=== PATIENT | male | born 1995 | race Two or more races ===

== ENCOUNTER 2024-11-20 23:57 | Inpatient (IN) | payer OTHER ==
[~2024-11-20] VITALS: Ht 177.8 cm; Wt 117.9 kg
[2024-11-21] MEDS ORDERED: LEVOTHYROXINE13 MCG PO (00:04)
--- NOTE | 2024-11-21 00:04 | NUR ---
PTE ALERTA Y ORIENTADO X3 EN AMBULANCIA REFIERE VENIR DE TRANSFER DEL [facility]. ANDRAE REFIERE VENIR POR DOLOR ABDOMINAL. DRA ALVAREZ ACEPTO ANDREA DE PTE
[2024-11-21] MEDS ORDERED: 0.9 % SODIUM CHLORIDE 1,000 ML IV STA (00:47)
[2024-11-21] MEDS ORDERED: HYOSCYAMINE SULFATE 0.125 MG TAB.SUBL SL STA (00:48)
[2024-11-21] MEDS ORDERED: HYOSCYAMINE SULFATE 0.125 MG TAB.SUBL ONE (00:56)
--- NOTE | 2024-11-21 04:25 | NUR ---
SE RONEN MUESTRAS DE LAB
[2024-11-21 04:39] LABS: BASO % 0.5 % (0.1-1.2); EOS # 0.08 (0.04-0.54); EOS % 0.8 % (0.7-7.0); LYMPH # 2.03 (1.18-3.74); LYMPH % 20.2 % (19.3-53.1); MEAN PLATELET VOLUME 10.90 fl (9.4-12.4); MONO # 0.59 (0.24-0.82); MONO % 5.9 % (4.7-12.5); NEUT # 7.27 (1.56-6.13); NEUT % 72.4 % (34.0-71.1); RED CELL DISTRIBUTION WIDTH 12.1 % (11.6-14.4)
[2024-11-21 04:49] LABS: INR 1.04
[2024-11-21 05:26] LABS: ALT/SGPT 275.0 U/L (12-78); AST/SGOT 212.0 U/L (15-37); BILIRUBIN TOTAL 5.93 mg/dL (0.3-1.2); BILIRUBIN,CONJUGATED 3.48 mg/dL (0.0-0.2); BUN CREA RATIO 13.0 (7.0-25.0); CREATININE SERUM 0.89 mg/dL (0.70-1.30); GFR 101.06; GLOBULINA 3.9 G/DL (2.4-3.5); GLUCOSE FASTING 101.0 mg/dL (65-100); OSMOLALITY SERUM 283.0 MOSM/KG (275-295)
[2024-11-21] MEDS ORDERED: PIPERACILLIN/TAZOBACTAM SODIUM 3.375 GM VIAL IV STA (06:11)
[2024-11-21] MEDS ORDERED: PIPERACILLIN/TAZOBACTAM SODIUM 3.375 GM VIAL IV ONE (06:22)
[2024-11-21] MEDS ORDERED: 0.9 % SODIUM CHLORIDE 1,000 ML IV SCH (10:30)
[2024-11-21] MEDS ORDERED: FAMOtidine 10 MG/ML (4ML VIAL) IV SCH (10:31)
[2024-11-21] MEDS ORDERED: MORPHINE SULFATE 4 MG/ML VIAL IV PRN (10:45)
[2024-11-21] MEDS ORDERED: ONDANSETRON HCL 4 MG in 0.9 % SODIUM CHLORIDE 50 ML IV PRN (10:45)
[2024-11-21] MEDS ORDERED: GLUCAGON 1 MG VIAL ONE (12:59)
[2024-11-21] MEDS ORDERED: IOVERSOL 320 MG/ML - 50 ML VIAL IV ONE (12:59)
[2024-11-21] MEDS ORDERED: MORPHINE SULFATE 4 MG/ML CARTRIDGE IV PRN (14:15)
[2024-11-21] MEDS ORDERED: DICLOFENAC SODIUM 100 MG SUPP.RECT RECTAL NR (14:30)
[2024-11-21] MEDS ORDERED: PIPERACILLIN/TAZOBACTAM SODIUM 3.375 GM in 0.9 % SODIUM CHLORIDE 100 ML IV SCH (18:00)
[2024-11-21 23:01] VITALS: BP 113/69; O2SAT 97
[2024-11-22 07:30] VITALS: BP 108/69; O2SAT 96
[2024-11-22 08:00] LABS: ALT/SGPT 266.0 U/L (12-78); AST/SGOT 156.0 U/L (15-37); BASO % 0.5 % (0.1-1.2); BILIRUBIN TOTAL 4.56 mg/dL (0.3-1.2); BUN CREA RATIO 15.0 (7.0-25.0); CREATININE SERUM 0.93 mg/dL (0.70-1.30); EOS # 0.11 (0.04-0.54); EOS % 1.1 % (0.7-7.0); GFR 96.06; GLOBULINA 3.3 G/DL (2.4-3.5); GLUCOSE FASTING 76.0 mg/dL (65-100); LYMPH # 1.47 (1.18-3.74); LYMPH % 15.3 % (19.3-53.1); MEAN PLATELET VOLUME 11.10 fl (9.4-12.4); MONO # 0.58 (0.24-0.82); MONO % 6.0 % (4.7-12.5); NEUT # 7.38 (1.56-6.13); NEUT % 76.8 % (34.0-71.1); OSMOLALITY SERUM 284.0 MOSM/KG (275-295); RED CELL DISTRIBUTION WIDTH 12.3 % (11.6-14.4)
[2024-11-22] MEDS ORDERED: FAMOTIDINE/PF 20 MG/2 ML VIAL IV SCH (09:00)
[2024-11-22 16:00] VITALS: BP 150/90; O2SAT 95
[2024-11-23] VITALS: BP 116/67; O2SAT 97
[2024-11-23 08:00] VITALS: BP 101/68; O2SAT 96
[2024-11-23 08:07] LABS: BASO % 0.4 % (0.1-1.2); EOS # 0.18 (0.04-0.54); EOS % 2.2 % (0.7-7.0); LYMPH # 1.75 (1.18-3.74); LYMPH % 21.5 % (19.3-53.1); MEAN PLATELET VOLUME 11.00 fl (9.4-12.4); MONO # 0.54 (0.24-0.82); MONO % 6.6 % (4.7-12.5); NEUT # 5.63 (1.56-6.13); NEUT % 69.2 % (34.0-71.1); RED CELL DISTRIBUTION WIDTH 12.0 % (11.6-14.4)
[2024-11-23 08:40] LABS: BUN CREA RATIO 11.0 (7.0-25.0); CREATININE SERUM 0.87 mg/dL (0.70-1.30); GFR 103.74; GLUCOSE FASTING 64.0 mg/dL (65-100); OSMOLALITY SERUM 284.0 MOSM/KG (275-295)
[2024-11-23 12:38] LABS: GLUCOSE FASTING 108.0 mg/dL (65-100)
[2024-11-23 12:39] LABS: AST/SGOT 90.0 U/L (15-37); BILIRUBIN TOTAL 1.83 mg/dL (0.3-1.2); BUN CREA RATIO 11.0 (7.0-25.0); CREATININE SERUM 0.89 mg/dL (0.70-1.30); GFR 101.06; GLOBULINA 3.5 G/DL (2.4-3.5); OSMOLALITY SERUM 285.0 MOSM/KG (275-295)
[2024-11-23 12:40] LABS: ALT/SGPT 206.0 U/L (12-78)
[2024-11-23 16:00] VITALS: BP 153/94; O2SAT 97
[2024-11-24 01:31] VITALS: BP 122/73; O2SAT 97
[2024-11-24] MEDS ORDERED: BUPIVACAINE HCL 30 ML VIAL IJ ONE (08:45)
[2024-11-24] MEDS ORDERED: CEFAZOLIN SODIUM 1,000 MG VIAL IV ONE (08:45)
[2024-11-24] MEDS ORDERED: LIDOCAINE HCL 1%/EPINEPHRINE 20ML VIAL IJ ONE (08:45)
[2024-11-24] MEDS ORDERED: MORPHINE SULFATE 4 MG/ML VIAL IV ONE ×4 (09:50→11:30)
[2024-11-24] MEDS ORDERED: SUGAMMADEX SODIUM 200 MG/2 ML VIAL IV ONE (11:15)
[2024-11-24 13:30] VITALS: BP 118/77; O2SAT 95
[2024-11-24 16:23] VITALS: BP 129/85; O2SAT 95
[2024-11-24] MEDS ORDERED: MORPHINE SULFATE 4 MG/ML VIAL IV PRN (16:45)
[2024-11-24] MEDS ORDERED: ACETAMINOPHEN 325 MG TABLET PO SCH (17:00)
[2024-11-24] MEDS ORDERED: GABAPENTIN 300 MG CAPSULE PO SCH (17:00)
[2024-11-25 00:25] VITALS: BP 114/71; O2SAT 100
[2024-11-25 07:14] LABS: BASO % 0.4 % (0.1-1.2); EOS # 0.10 (0.04-0.54); EOS % 1.0 % (0.7-7.0); LYMPH # 1.73 (1.18-3.74); LYMPH % 17.7 % (19.3-53.1); MEAN PLATELET VOLUME 10.90 fl (9.4-12.4); MONO # 0.75 (0.24-0.82); MONO % 7.7 % (4.7-12.5); NEUT # 7.15 (1.56-6.13); NEUT % 73.0 % (34.0-71.1); RED CELL DISTRIBUTION WIDTH 12.0 % (11.6-14.4)
[2024-11-25 07:59] LABS: BUN CREA RATIO 9.0 (7.0-25.0); CREATININE SERUM 0.88 mg/dL (0.70-1.30); GFR 102.38; GLUCOSE FASTING 89.0 mg/dL (65-100); OSMOLALITY SERUM 283.0 MOSM/KG (275-295)
[2024-11-25 08:00] VITALS: BP 133/81; O2SAT 95
[2024-11-25 08:57] LABS: ALT/SGPT 181.0 U/L (12-78); AST/SGOT 78.0 U/L (15-37); BILIRUBIN TOTAL 1.61 mg/dL (0.3-1.2); GLOBULINA 3.3 G/DL (2.4-3.5)
[2024-11-25 15:18] VITALS: BP 124/75; O2SAT 96
[2024-11-26 01:15] VITALS: BP 119/76; O2SAT 97
[2024-11-26 08:00] VITALS: BP 129/82; O2SAT 95
== END 2024-11-26 16:00 | DRG 419 ==
LOC: ER 23:57 → SEC-K 11-21 10:38 → SURG 11-21 10:38 → SURH 11-21 16:07 → SURG 11-21 20:53
PROVIDERS: Student in an Organized Health Care Education/Training Program; ADMIT Student in an Organized Health Care Education/Training Program; ATTEND Student in an Organized Health Care Education/Training Program
PROC: 0F7D8DZ Dilation of Pancreatic Duct with Intraluminal Device, Via Natural or Artificial Opening Endoscopic (ICD-10-PCS; 2024-11-21)
PROC: BF18YZZ Fluoroscopy of Pancreatic Ducts using Other Contrast (ICD-10-PCS; 2024-11-21)
PROC: 0FC98ZZ Extirpation of Matter from Common Bile Duct, Via Natural or Artificial Opening Endoscopic (ICD-10-PCS; 2024-11-21)
PROC: BF13YZZ Fluoroscopy of Gallbladder and Bile Ducts using Other Contrast (ICD-10-PCS; 2024-11-21)
PROC: XFJD8A7 Inspection of Pancreatic Duct using Single-use Duodenoscope, New Technology Group 7 (ICD-10-PCS; 2024-11-21)
PROC: BF37ZZZ Magnetic Resonance Imaging (MRI) of Pancreas (ICD-10-PCS; 2024-11-21)
PROC: BF53200 Other Imaging of Gallbladder and Bile Ducts using Fluorescing Agent, Indocyanine Green Dye, Intraoperative (ICD-10-PCS; 2024-11-24)
PROC: 0FT44ZZ Resection of Gallbladder, Percutaneous Endoscopic Approach (ICD-10-PCS; principal; 2024-11-24 09:15)
DX: K80.10 Calculus of gallbladder with chronic cholecystitis without obstruction (principal); R74.8 Abnormal levels of other serum enzymes; K82.8 Other specified diseases of gallbladder